=== PATIENT | male | born 1995 | race Caucasian/White ===

== ENCOUNTER 2018-03-05 03:44 | Emergency (ER) | payer MEDICAID ==
[~2018-03-05] VITALS: Ht 162.6 cm; Wt 81.0 kg
[2018-03-05] MEDS ORDERED: LORAZEPAM 2MG/ML CPJ IV ONE (07:30)
[2018-03-05] MEDS ORDERED: PROPOFOL 10MG/ML 100ML 100 ML IV ONE (08:15)
[2018-03-05] MEDS ORDERED: ETOMIDATE 2MG/ML 10ML VIAL IV ONE (08:15)
[2018-03-05] MEDS ORDERED: KETAMINE HCL 50 MG/ML 10ML IV ONE (08:45)
[2018-03-05] MEDS ORDERED: FAMOTIDINE 20MG/2ML VIAL IV ONE (10:00)
[2018-03-05 10:16] VITALS: BP 116/74
== END 2018-03-05 10:25 | disposition home or self-care (01) ==
LOC: ER 03:44
DX: S03.01XA Dislocation of jaw, right side, initial encounter (principal); X58.XXXA Exposure to other specified factors, initial encounter; Y93.89 Activity, other specified; Y92.149 Unspecified place in prison as the place of occurrence of the external cause
CPT/HCPCS: 21480; 96374; 96375; 99152; 99285; J2060; J2704; J3490; J7030; Z7610